=== PATIENT | male | born 1970 | race Caucasian/White ===

== ENCOUNTER 2025-04-17 14:24 | Outpatient (CLI) | payer OTHER, SELFPAY | END 2025-04-17 14:25 | disposition home or self-care (01) | PROVIDERS: Visit Provider Physician Assistant Surgical | DX: L03.115 Cellulitis of right lower limb (principal); Z12.5 Encounter for screening for malignant neoplasm of prostate | CPT/HCPCS: 80053; 85651; 86140; G0103 ==